=== PATIENT | female | born 2000 | race Caucasian/White ===

== ENCOUNTER 2021-04-15 10:39 | Emergency (ER) | payer MEDICAID ==
--- NOTE | 2021-04-15 11:11 | ED Physician Documentation ---
PD HPI ABD PAIN - Stated complaint Stated Complaint: N/V R SIDE PX - Chief complaint Chief Complaint: Abd Pain - History obtained from History obtained from: Patient - History of Present Illness Timing - onset: How many hours ago (onset few hours ago of steady severe right sided abd pain to right flank. Had it briefly yesterday then mostly went away, with reprisal now.) Timing - duration: Hours Timing - details: Abrupt onset, Still present Quality: Aching, Sharp, Pain Location: RLQ Radiation: Right flank Improved by: No: Laying still Worsened by: Moving. No: Breathing, Palpation Associated symptoms: Nausea, Constipation (for several days), Vaginal dc (Dx with BV 2 weeks ago and just finished the metronidazole and symptoms had improved.). No: Vomiting, Diarrhea, Dysuria, Loss of appetite Similar symptoms before: Diagnosis (has had several kidney stones in the past, with need for laser/retrieval of some in the past. Has Urologist Dr. Rubin in [facility].) Recently seen: Clinic (recently for BV, improved.) Review of Systems Constitutional: denies: Fever, Chills Nose: denies: Rhinorrhea / runny nose, Congestion Throat: denies: Sore throat Respiratory: denies: Cough GI: reports: Abdominal Pain, Nausea, Constipation. denies: Vomiting, Diarrhea : denies: Dysuria, Frequency, Discharge (couple weeks ago, resolved now.) Skin: denies: Rash, Lesions PD PAST MEDICAL HISTORY - Past Medical History Cardiovascular: None Respiratory: None Neuro: None Endocrine/Autoimmune: None [employer]: None : Kidney stones - Present Medications Home Medications: Ambulatory Orders Medication Instructions Recorded Confirmed Docusate Sodium 100Mg Capsule 100 mg PO DAILY #20 cap 04/15/21 [Colace 100Mg Capsule] HYDROcod/ACETAM 5/325 [Ramona 5/325] 1 ea PO Q6H PRN #12 tablet 04/15/21 Omeprazole Magnesium 20 mg PO DAILY 30 Days #30 cap 04/15/21 Ondansetron Odt [Zofran] 4 mg TL Q6H PRN #10 tablet 04/15/21 - Allergies Allergies/Adverse Reactions: Allergies Allergy/AdvReac Type Severity Reaction Status Date / Time azithromycin Allergy Hives Verified 04/15/21 10:51 pseudoephedrine Allergy Nausea Verified 04/15/21 10:52 PD ED PE NORMAL - Vitals Vital signs reviewed: Yes - General General: Alert and oriented X 3, Well developed/nourished, Other (appears in considerable pain right side abd and flank. ) - Neck Neck: Supple, no meningeal sign, No adenopathy - Cardiac Cardiac: RRR, No murmur - Respiratory Respiratory: Clear bilaterally - Abdomen Abdomen: Normal bowel sounds, Soft, Non distended, No organomegaly, Other (tender right side abd but palpation does not trigger the pain as intensely as the pain is there. ) - Back Back: Other (right CVA tenderness) - Derm Derm: Normal color, Warm and dry - Neuro Neuro: Alert and oriented X 3, No motor deficit, Normal speech Results - Vitals Vitals: Vital Signs - 24 hr 04/15/21 04/15/21 04/15/21 10:47 12:38 14:00 Temperature 36.3 C L Heart Rate 76 62 66 Respiratory 20 18 16 Rate Blood Pressure 110/66 114/73 105/79 O2 Saturation 97 100 98 Oxygen O2 Source Room air - Labs Labs: Laboratory Tests 04/15/21 04/15/21 04/15/21 11:03 11:03 11:27 WBC 4.8 RBC 4.38 Hgb 12.4 Hct 38.3 MCV 87.4 MCH 28.3 MCHC 32.4 RDW 13.3 Plt Count 203 MPV 9.0 Neut # (Auto) 2.9 Lymph # (Auto) 1.3 L [place] # (Auto) 0.3 Eos # (Auto) 0.2 Baso # (Auto) 0.1 Absolute Nucleated RBC 0.00 Nucleated RBC % 0.0 Sodium 140 Potassium 4.1 Chloride 107 Carbon Dioxide 24 Anion Gap 9.0 BUN 14 Creatinine 0.7 Estimated GFR (MDRD) 105 Glucose 125 H Calcium 9.2 Total Bilirubin 0.7 AST 21 ALT 36 Alkaline Phosphatase 78 Total Protein 7.2 Albumin 4.3 Globulin 2.9 Albumin/Globulin Ratio 1.5 Lipase 29 Urine Color YELLOW Urine Clarity CLEAR Urine pH 6.5 Ur Specific [place] 1.020 Urine Protein NEGATIVE Urine Glucose (UA) NEGATIVE Urine Ketones NEGATIVE Urine Occult Blood MODERATE H Urine Nitrite NEGATIVE Urine Bilirubin NEGATIVE Urine Urobilinogen 0.2 (NORMAL) Ur Leukocyte Esterase NEGATIVE Urine RBC 11-25 H Urine WBC 0-3 Ur Squamous Epith Cells FEW Squamous Urine Bacteria Few Ur Microscopic Review INDICATED Urine Culture Comments NOT INDICATED Urine HCG, Qual NEGATIVE - Rads (name of study) abd/pelvis CT Radiology: Prelim report reviewed (no stones seen. no hydronephrosis. generous stool right lower area. No other acute process. ), See rad report PD MEDICAL DECISION MAKING - ED course Complexity details: re-evaluated patient (after CT, the patient urinated in bathroom and there was small about 5 mm stone in toilet. Consider that she passed ureteral stone. However, still having same right pain, so not clearly. Could be aftershocks of the stone with spasms, so anticipate improving over 1-2 days. ), considered differential (seems likely kidney stone, given history of them, but consider ovarian cyst, ectopic, atypical appy, etc. ), d/w patient Departure - Departure Disposition: 01 Home, Self Care Clinical Impression: Right sided abdominal pain Condition: Stable Record reviewed to determine appropriate education?: Yes Instructions: ED Abdominal Pain Female Non-Specific Abdominal Pain Follow-Up: Steve Shaw MD [Primary Care Provider] - Prescriptions: Docusate Sodium 100Mg Capsule [Colace 100Mg Capsule] 100 mg PO DAILY #20 cap HYDROcod/ACETAM 5/325 [Ramona 5/325] 1 ea PO Q6H PRN #12 tablet PRN Reason: Pain Omeprazole Magnesium 20 mg PO DAILY 30 Days #30 cap Ondansetron Odt [Zofran] 4 mg TL Q6H PRN #10 tablet PRN Reason: Nausea / Vomiting Comments: Your urine test does not show any signs of infection. Your CT scan did not show any obvious cause for the pain for certain. No signs of kidney stones nor swelling of your kidneys. No signs of appendicitis. Normal appearance of the pelvic structures. They do comment on a moderate amount of stool collected in the right lower abdomen and that could be causing pain with stretching of the colon in that area. There was a small kidney stone appearing structure when you went to the bathroom in the toilet. It was not visible on the CT scan but may have been close to coming out in the bladder or urethra and may not of been seen on the scan. If so then the having passed the stone, you would expect improvement in pain through the day today and into tomorrow. Otherwise I would anticipate improvement with some stool softener and staying well-hydrated if it is related to some stool buildup. Stay well-hydrated. Use Tylenol every 4-6 hours if needed for pain or hydrocodone if needed for worse pain. Try to limit the use of this as it can further enhance constipation. Docusate stool softener twice daily for the next several days to week and then once daily for a week after that. Ondansetron if needed for nausea. Continue omeprazole daily for acid reduction. I sent your prescriptions to [facility] in [place]. I am prescribing a short course of narcotic pain medication for you. These are potentially dangerous and addictive medications that should be used carefully. These medications may constipate you. Take an [id number] stool softener such as docusate twice daily with plenty of water while taking these medications. If you go 24 hours without a bowel movement, take [id number] MiraLAX, per package instructions. Do not drink or drive while taking these medications. If you received narcotic or sedating medications while in the emergency department do not drive for 24 hours. Store this medication in a safe, secure place and out of reach of children. It is a violation of federal law to give or sell this medication to another person or to use in a manner other than prescribed. The ED will not refill narcotic prescriptions, including prescriptions lost or stolen. You can dispose of unwanted medications at the [facility]'s office or at several pharmacies such as [facility]. Discharge Date/Time: 04/15/21 14:42
[2021-04-15 11:15] LABS: BASOPHILS # (AUTO) 0.1 10^3/uL (0.0-0.1); BASOPHILS % (AUTO) 1.3 %; EOSINOPHILS # (AUTO) 0.2 10^3/uL (0.0-0.7); EOSINOPHILS % (AUTO) 3.5 %; HCT - HEMATOCRIT 38.3 % (37.0-47.0); HGB - HEMOGLOBIN 12.4 g/dL (12.0-16.0); LYMPHOCYTES # (AUTO) 1.3 10^3/uL (1.5-3.5); LYMPHOCYTES % (AUTO) 27.1 %; MEAN CORPUSCULAR HEMOGLOBIN 28.3 pg (27.0-31.0); MEAN CORPUSCULAR HGB CONC 32.4 g/dL (32.0-36.0); MEAN CORPUSCULAR VOLUME 87.4 fL (81.0-99.0); MONOCYTES # (AUTO) 0.3 10^3/uL (0.0-1.0); MONOCYTES % (AUTO) 5.8 %; NEUTROPHILS # (AUTO) 2.9 10^3/uL (1.5-6.6); NEUTROPHILS % (AUTO) 61.5 %; PLT - PLATELET COUNT 203 10^3/uL (130-450); RED BLOOD COUNT 4.38 10^6/uL (4.20-5.40); RED CELL DISTRIBUTION WIDTH 13.3 % (12.0-15.0); WHITE BLOOD COUNT 4.8 x10^3/uL (4.8-10.8)
[2021-04-15 11:24] LABS: ALBUMIN 4.3 g/dL (3.2-5.5); ALBUMIN/GLOBULIN RATIO 1.5 (1.0-2.2); BILIRUBIN,TOTAL 0.7 mg/dL (0.2-1.0); CALCIUM 9.2 mg/dL (8.5-10.3); CREATININE 0.7 mg/dL (0.4-1.0); POTASSIUM 4.1 mmol/L (3.5-5.0); TOTAL PROTEIN 7.2 g/dL (6.7-8.2)
[2021-04-15] MEDS ORDERED: KETOROLAC 30 MG/ML VIAL IVP STA (11:27)
[2021-04-15] MEDS ORDERED: ONDANSETRON 4 MG/2 ML VIAL IVP STA (11:27)
[2021-04-15] MEDS ORDERED: HYDROmorphone 1 MG/ML CARPUJECT IVP STA ×2 (11:27→14:04)
[2021-04-15] MEDS ORDERED: LIDOCAINE-MPF 2% 5 ML in SODIUM CHLORIDE 0.9% 50 ML IV STA (11:28)
[2021-04-15] MEDS ORDERED: IOVERSOL 320 100 ML VIAL IVP ONE ×2 (11:43→12:32)
[2021-04-15 11:46] LABS: BILIRUBIN,URINE NEGATIVE (NEGATIVE); CLARITY,URINE CLEAR (CLEAR); GLUCOSE, URINE (UA) NEGATIVE (NEGATIVE); KETONES,URINE (UA) NEGATIVE (NEGATIVE); LEUKOCYTE ESTERASE, URINE NEGATIVE (NEGATIVE); NITRITE,URINE NEGATIVE (NEGATIVE); OCCULT BLOOD,URINE MODERATE (NEGATIVE); PH,URINE 6.5 PH (5.0-7.5); PROTEIN,URINE NEGATIVE (NEGATIVE); UROBILINOGEN,URINE 0.2 (NORMAL) E.U./dL (NORMAL)
[2021-04-15 11:47] LABS: HCG UR QUAL NEGATIVE
[2021-04-15 12:04] LABS: BACTERIA,URINE Few /HPF (None Seen); SQUAMOUS EPITHELIAL CELL,UR FEW Squamous (<= Few); WBC,URINE 0-3 /HPF (0-5)
--- NOTE | 2021-04-15 13:11 | CT Report ---
PROCEDURE: CT abdomen and pelvis with contrast INDICATIONS: right abd pain since yesterday CONTRAST: IV CONTRAST: Optiray 320 ml: 100 PO CONTRAST: *NO PO CONTRAST TECHNIQUE: After the administration of intravenous contrast, 5 mm thick sections acquired from the diaphragms to the symphysis. 5 mm thick coronal and sagittal reformats were acquired. For radiation dose reducti on, the following was used: automated exposure control, adjustment of mA and/or kV according to benigno ent size. COMPARISON: None. FINDINGS: Image quality: Excellent. ABDOMEN: Lung bases: Lung bases are clear. Heart size is normal. Solid organs: Liver and spleen are normal in size and enhancement. Gallbladder unremarkable. Bilia ry system is non dilated. Pancreas enhances normally. No adrenal nodules. Kidneys demonstrate norm al size and enhancement, without hydronephrosis. Peritoneum and bowel: Bowel loops demonstrate normal wall thickness and caliber. No free fluid or a ir. Moderate fecal debris in the right colon. Nonvisualized appendix, but no pericecal inflammation noted. Nodes and vessels: No retroperitoneal or mesenteric adenopathy by size criteria. Aorta and inferior vena cava are normal in size. Miscellaneous: No ventral hernias. PELVIS: Genitourinary: Bladder wall thickness is normal. Miscellaneous: No inguinal hernias or adenopathy. Bones: No suspicious bony lesions. No vertebral body compression fractures. IMPRESSION: 1. Moderate fecal debris in the right colon. Otherwise no acute CT findings in the abdomen and pelvis . Reviewed by: Marino Nogueira MD on 04/15/2021 12:10 PM [place] Approved by: Marino Nogueira MD on 04/15/2021 12:10 PM [facility] Station ID: [id number]
[2021-04-15] MEDS ORDERED: DOCUSATE SODIUM 100 MG CAPSULE PO STA (13:38)
[2021-04-15 14:31] VITALS: BP 105/79
== END 2021-04-15 14:42 | disposition home or self-care (01) ==
LOC: ED 10:39
DX: R10.9 Unspecified abdominal pain (principal)
CPT/HCPCS: 36415; 74177; 80053; 81001; 81025; 83690; 85025; 96374; 96375; 96376; 99284; A9270; J1170; J7040; Q9967; 81003; 87086